=== PATIENT | female | born 1965 ===

== ENCOUNTER 2020-04-12 05:20 | Day surgery (SDC) | payer OTHER ==
[~2020-04-12 05:20] MED LIST: SYNTHROID75 MCG PO
== END 2020-04-12 14:40 | disposition home or self-care (01) ==
LOC: CIR.AMB 05:20
PROVIDERS: ATTEND Plastic Surgery
DX: N62 Hypertrophy of breast (principal); Z20.828 Contact with and (suspected) exposure to other viral communicable diseases